=== PATIENT | female | born 1995 | race Caucasian/White ===

== ENCOUNTER 2017-07-23 23:13 | Outpatient (CLI) | payer OTHER ==
[2017-07-23 23:28] VITALS: BP 119/70
[2017-07-24] MEDS ORDERED: VISTARIL PO ONE (00:01)
== END 2017-07-24 00:45 | disposition home or self-care (01) ==
LOC: TRG 23:13
PROVIDERS: ATTEND Obstetrics & Gynecology
DX: O62.9 Abnormality of forces of labor, unspecified (principal); Z3A.39 39 weeks gestation of pregnancy
CPT/HCPCS: 59025; Q0177

== ENCOUNTER 2017-07-24 11:29 | Inpatient (IN) | payer OTHER ==
[2017-07-24] MEDS ORDERED: NARCAN 0.4 MG/1 ML IV PRN ×2 (15:03→22:13)
[2017-07-24] MEDS ORDERED: ePHEDrine SULFATE IV PRN (15:03)
[2017-07-24] MEDS ORDERED: POLYCILLIN/NS 2 GM/100 ML 2 GM/100 ML BAG IV ONE (15:03)
[2017-07-24] MEDS ORDERED: BRETHINE SUB-Q PRN (15:03)
[2017-07-24] MEDS ORDERED: MINERAL OIL PO PRN (15:03)
[2017-07-24] MEDS ORDERED: PHENERGAN PO PRN (15:03)
[2017-07-24] MEDS ORDERED: ZOFRAN IV PRN (15:03)
[2017-07-24] MEDS ORDERED: BRETHINE IVP PRN (15:03)
--- NOTE | 2017-07-24 15:13 | History and Physical Report ---
History of Present Illness Date of examination: 07/24/17 Date of admission: 07/24/2017 Chief complaint: Contractions History of present illness: 21 yo Fe IRMA 07/24/2017 presents with contractions. Placed on EFM. Nonreactive NST, minimal varibility, with early decels. Sent for BPP 11/19, MATHEUS 7.3 cm Pt received care of [facility]. Records not available on admission. Denies Allergies, History of surgery, Medical problems, or problems with this . Reports GBS positive Past History Past Medical History: no pertinent history Past Surgical History: no surgical history RECEPTION INTERVIEWER History: denies: abnormal PAP smear, chlamydia, gonorrhea, hepatitis B, hepatitis C, herpes, HIV, syphilis, trichomonas Family/Genetic History: none Social history: no significant social history, single, lives with family, full code. denies: smoking, alcohol abuse, prescription drug abuse, IV drug use - Obstetrical History Expected Date of Delivery: 07/24/17 Actual Gestation: 40 Week(s) 0 Day(s) : 2 Para: 0 Hx # Term Pregnancies: 0 Number of Pregnancies: 0 Spontaneous Abortions: 1 Induced : 0 Number of Living Children: 0 Medications and Allergies Allergies Allergy/AdvReac Type Severity Reaction Status Date / Time No Known Allergies Allergy Unverified 07/24/17 00:00 Active Meds: Active Medications Butorphanol Tartrate (Stadol) 1 mg IV Q2H PRN PRN Reason: Pain, Moderate (4-6) Ephedrine Sulfate (Ephedrine Sulfate) 10 mg IV Q2M PRN PRN Reason: Hypotension Ampicillin Sodium (Polycillin/Ns 2 Gm/100 Ml) 2 gm in 100 mls @ 100 mls/hr IV ONCE ONE; Protocol Stop: 07/24/17 16:02 Lactated Ringer's (Lactated Ringers) 1,000 mls @ 125 mls/hr IV DIRECT ANITHA Oxytocin/Sodium Chloride (Pitocin/Ns 20 Unit/1000ml Drip) 20 units in 1,000 mls @ 125 mls/hr IV DIRECT ANITHA Oxytocin/Sodium Chloride (Pitocin/Ns 30 Unit/500ml) 30 units in 500 mls @ 2 mls /hr IV TITR ANITHA; Protocol Mineral Oil (Mineral Oil) 30 ml PO QHS PRN PRN Reason: Constipation Naloxone HCl (Narcan 0.4 Mg/1 Ml) 0.1 mg IV Q2MIN PRN PRN Reason: Res Rate </= 8 or 02 SAT < 92% Ondansetron HCl (Zofran) 4 mg IV Q8H PRN PRN Reason: Nausea And Vomiting Promethazine HCl (Phenergan) 25 mg PO Q6H PRN PRN Reason: Nausea And Vomiting Terbutaline Sulfate (Brethine) 0.25 mg SUB-Q ONCE PRN PRN Reason: Hyperstimulation/Hypertonicity Terbutaline Sulfate (Brethine) 0.25 mg IVP ONCE PRN PRN Reason: Hyperstimulation/Hypertonicity Review of Systems All systems: negative Cardiovascular: no chest pain, no shortness of breath Respiratory: no shortness of breath Breasts: normal Gastrointestinal: no nausea, no vomiting, no diarrhea, no constipation Genitourinary: normal appearance, contractions, no vaginal bleeding, no leakage of fluid, no genital sores Integumentary: no rash, no sores, no lesions - Vital Signs Vital signs: Vital Signs Pulse BP 95 H 104/55 07/24/17 12:09 07/24/17 12:09 Temp Pulse Resp BP Pulse Ox 98.1 F 89 16 104/55 98 07/24/17 12:33 07/24/17 13:50 07/24/17 12:33 07/24/17 12:09 07/24/17 13:50 - Physical Exam Cardiovascular: Regular rate, Normal S1, Normal S2 Lungs: Positive: Clear to auscultation, Normal air movement Abdomen: Positive: normal appearance, soft, other (gravid) Genitourinary (Female): Positive: normal external genitalia, normal perenium Vagina: Positive: normal moisture Uterus: Positive: enlarged (Gravid) Anus/Rectum: Positive: normal perianal skin Extremities: Positive: normal Deep Tendon Reflex Grade: Normal +2 - Obstetrical FHR: auscultation normal, category 1 FHR comments: 150 BL, minimal varibility, reassuring, nonreactive Uterine Contraction Monitor Mode: External Cervical Dilatation: 2 (Per infrastructure technician) Cervical Effacement Percentage: 90 station: -2 Uterine Contraction Pattern: Regular Uterine Tone Measurement Phase: Resting Uterine Contraction Intensity: Moderate Results All other labs normal. Assessment and Plan A: , IRMA 07/24/2017; 40w0d GBS positive Nonreactive, reassuring NST BPP 11/19 MATHEUS 7.3 cm P: Admit to L&D Routine L&D orders Pitocin Augmentation GBS prophylaxis
--- NOTE | 2017-07-24 15:49 | Ultrasound Report ---
BIOPHYSICAL PROFILE: INDICATION: well being, decelerations. COMPARISON: None similar. TECHNIQUE: Transabdominal ultrasound with Doppler interrogation. 2 - breathing movements 2 - movements 2 - posture and tone 2 - Qualitative amniotic fluid volume 8 - TOTAL SCORE OF POSSIBLE 8 Heart Rate (bpm) 156 CONCLUSION: Findings, as above.
[2017-07-24] MEDS ORDERED: PITOCin/NS 20 UNIT/1000ML DRIP 20 UNITS/1,000 ML BAG IV SCH (16:00)
[2017-07-24] MEDS ORDERED: PITOCin/NS 30 UNIT/500ML 30 UNITS/500 ML BAG IV SCH (16:00)
[2017-07-24 16:29] LABS: Hematocrit 31.6 % (30.3-42.9); Hemoglobin 10.1 gm/dl (10.1-14.3); Mean Corpuscular HGB Conc 32 % (30-34); Mean Corpuscular Hemoglobin 23 pg (28-32); Mean Corpuscular Volume 72 fl (79-97); Platelet Count 266 K/mm3 (140-440); Red Blood Count 4.42 M/mm3 (3.65-5.03); Red Cell Distribution Width 17.7 % (13.2-15.2)
[2017-07-24] MEDS: LACTATED RINGERS 1,000 ML IV SCH ×3 (17:33→22:27)
[2017-07-24] MEDS: STADOL IV PRN ×2 (17:37→19:32)
[2017-07-24] MEDS ORDERED: AMPICILLIN/NS 1 GM/50 ML 1 GM/50 ML BAG IV SCH (18:00)
[2017-07-24] MEDS ORDERED: SODIUM CHLORIDE FLUSH SYRINGE 10 ML IV PRN (22:13)
[2017-07-24] MEDS ORDERED: XYLOCAINE MPF 2% ONE (22:21)
--- NOTE | 2017-07-24 22:39 | Anesthesia Consultation ---
Anesthesia Consult and Med Hx Date of service: 07/24/17 - Airway Anesthetic Teeth Evaluation: Good ROM Head & Neck: Adequate Mental/Hyoid Distance: Adequate Mallampati Class: Class I Intubation Access Assessment: Good - Pulmonary Exam CTA: Yes - Pre-Operative Health Status ASA Pre-Surgery Classification: ASA1 Proposed Anesthetic Plan: Epidural - Pulmonary Hx Asthma: No - Cardiovascular System Hx Hypertension: No - Central Nervous System Hx Seizures: No Hx Psychiatric Problems: No - Endocrine Hx Renal Disease: No Hx Hypothyroidism: No Hx Hyperthyroidism: No - Hematic Hx Anemia: No Hx Sickle Cell Disease: No - Other Systems Hx Alcohol Use: Yes (occasional)
[2017-07-24] MEDS ORDERED: fentaNYL-BUPIV 2 MCG/ML-0.125% 200 MCG/100 ML BAG EPIDURAL ONE (23:00)
[2017-07-25] MEDS ORDERED: ZOFRAN IV PRN (01:14)
[2017-07-25] MEDS ORDERED: TUCKS PAD TP PRN (01:14)
[2017-07-25] MEDS ORDERED: PHENERGAN PO PRN (01:14)
[2017-07-25] MEDS ORDERED: BENADRYL PO PRN (01:14)
[2017-07-25] MEDS ORDERED: TYLENOL PO PRN (01:14)
[2017-07-25] MEDS ORDERED: NORCO 5/325 PO PRN (01:14)
[2017-07-25] MEDS ORDERED: PHENERGAN PR PRN (01:14)
[2017-07-25] MEDS ORDERED: LANSINOH TP PRN (01:14)
[2017-07-25] MEDS ORDERED: MILK OF MAGNESIA PO PRN (01:14)
[2017-07-25] MEDS ORDERED: DULCOLAX PR PRN (01:14)
--- NOTE | 2017-07-25 01:14 | Procedure Note ---
OB Delivery Note - Delivery Date of Delivery: 07/25/17 Surgeon: CURTIS KAUR Estimated blood loss: 300cc - Vaginal Delivery presentation: vertex Delivery position: OA Intrapartum events: none Delivery induction: oxytocin Delivery augmentation: rupture of membranes, pitocin Delivery monitor: external FHT, external uterine Route of delivery: Delivery placenta: spontaneous Delivery cord: 3 umbilical vessels Episiotomy: none Delivery laceration: 2nd degree (perineal) Delivery repair: vicryl Anesthesia: epidural Delivery comments: delivered OA and placed on Mom's chest for [id number] bonding and delayed cord clamping. - A at 1 minute: 9 at 5 minutes: 9 Infant Gender: Male (3150gms)
[2017-07-25] MEDS ORDERED: SODIUM CHLORIDE FLUSH SYRINGE 10 ML IV NR (02:00)
[2017-07-25] MEDS ORDERED: PITOCin/NS 20 UNIT/1000ML DRIP 20 UNITS/1,000 ML BAG IV SCH (02:00)
[2017-07-25] MEDS: MOTRIN PO SCH ×3 (06:15→23:53)
--- NOTE | 2017-07-25 07:33 | Ultrasound Report ---
OB LIMITED INDICATION: well being, decelerations. COMPARISON: None similar at this institution. TECHNIQUE: Transabdominal grayscale ultrasound with Doppler interrogation. Gestation: [place] Position: Cephalic Amniotic Fluid: WNL (7-24 cm) MATHEUS = 7.3 cm Heart Rate: 156 BPM CONCLUSION: Findings, as above.
[2017-07-25] MEDS: FEOSOL PO SCH ×2 (10:32→23:54)
[2017-07-25] MEDS: PRENATAL VITAMIN PO SCH (10:32)
[2017-07-25] MEDS: COLACE PO SCH ×2 (10:32→23:54)
[2017-07-25 13:45] LABS: Hematocrit 25.8 % (30.3-42.9); Hemoglobin 8.2 gm/dl (10.1-14.3)
[2017-07-26] MEDS: MOTRIN PO SCH (05:37)
[2017-07-26] MEDS ORDERED: BOOSTRIX IM ONE (06:00)
[2017-07-26] MEDS ORDERED: M-M-R II VACCINE SUB-Q ONE (06:00)
--- NOTE | 2017-07-26 09:31 | Progress Note ---
Assessment and Plan A: PPD#1 s/p Stable P: Routine PP care Discharge home today Subjective - Subjective Date of service: 07/26/17 Principal diagnosis: PPD#1 s/p Interval history: 21 yo Fe IRMA 07/24/2017 presents with contractions. Placed on EFM. Nonreactive NST, minimal varibility, with early decels. Sent for BPP 11/19, MATHEUS 7.3 cm. IOL with . Patient reports: appetite normal, voiding normally, pain well controlled, flatus , ambulating normally : doing well, other (both breast/bottle) Objective - Vital Signs Latest vital signs: Vital Signs Temp Pulse Resp BP Pulse Ox 07/26/17 05:37 18 07/26/17 00:20 98.6 F 68 20 92/45 98 07/25/17 23:53 18 07/25/17 16:33 99.0 F 89 18 102/64 99 07/25/17 13:07 99.9 F H 77 18 103/54 98 Intake and Output 07/25/17 07/26/17 07/26/17 23:59 07:59 15:59 Intake Total 1200 720 Output Total 4 Balance 1196 720 Intake: Oral 360 240 Intake, Free Water 840 480 Output: Urine 4 Void 4 Other: Total, Intake Amount 360 240 Total, Output Amount 4 # Voids Void 2 - Exam Breasts: Present: normal Cardiovascular: Present: Regular rate, Normal S1, Normal S2 Lungs: Present: Clear to auscultation, Normal air movement Abdomen: Present: normal appearance, soft, normal bowel sounds Vulva: both: normal Uterus: Present: firm, fundal height below umbilicus (1) Extremities: Present: normal Deep Tendon Reflex Grade: Normal +2 - Labs Labs: Abnormal lab results 07/25/17 Range/Units 13:33 Hgb 8.2 L (10.1-14.3) gm/dl Hct 25.8 L (30.3-42.9) %
--- NOTE | 2017-07-26 09:34 | Discharge Summary ---
Providers - Providers Date of Admission: 07/24/17 11:30 Date of discharge: 07/26/17 Attending physician: MELISSA MONTANA MD Primary care physician: MELISSA MONTANA MD Hospitalization Reason for admission: active labor, IUP at term, other (Pitocin Augmentation ) Delivery: Procedure details: See H&P and delivery note Episiotomy: none Laceration: 2nd degree (well approximated) Other procedures: none complications: none Discharge diagnosis: IUP at term delivered baby: male Condition at discharge: Good Disposition: DC-01 TO HOME OR SELFCARE Plan - Provider Discharge Summary Activity: no sex for 6 weeks, no heavy lifting 4 weeks, no strenuous exercise Diet: routine Instructions: routine Additional instructions: [] Smoking cessation referral if applicable(refer to patient education folder for contact #) [] Refer to [facility]'s [facility] Booklet Call your doctor immediately for: * Fever > 100.5 * Heavy vaginal bleeding ( >1 pad per hour) * Severe persistent headache * Shortness of breath * Reddened, hot, painful area to leg or breast * Drainage or odor from incision. * Keep incision clean and dry at all times and follow doctor's instructions regarding bathing/showering - Follow up plan Follow up: MELISSA MONTANA MD [Primary Care Provider] - 6 Weeks
[2017-07-26] MEDS: PRENATAL VITAMIN PO SCH (11:15)
[2017-07-26] MEDS: FEOSOL PO SCH (11:15)
[2017-07-26 19:20] VITALS: BP 112/58
== END 2017-07-26 18:05 | disposition home or self-care (01) | DRG 775 ==
LOC: TRG 11:29 → LD 11:30 → OB 07-25 02:56
PROVIDERS: ADMIT Obstetrics & Gynecology; ATTEND Obstetrics & Gynecology
PROC: 10E0XZZ Delivery of Products of Conception, External Approach (ICD-10-PCS; principal; 2017-07-25)
PROC: 0KQM0ZZ Repair Perineum Muscle, Open Approach (ICD-10-PCS; 2017-07-25)
PROC: 3E033VJ Introduction of Other Hormone into Peripheral Vein, Percutaneous Approach (ICD-10-PCS; 2017-07-25)
PROC: 3E0R3BZ Introduction of Anesthetic Agent into Spinal Canal, Percutaneous Approach (ICD-10-PCS; 2017-07-25)
PROC: 00HU33Z Insertion of Infusion Device into Spinal Canal, Percutaneous Approach (ICD-10-PCS; 2017-07-25)
DX: O99.824 Streptococcus B carrier state complicating childbirth (principal); O70.1 Second degree perineal laceration during delivery; Z3A.40 40 weeks gestation of pregnancy; Z37.0 Single live birth
CPT/HCPCS: 36415; 76815; 76819; 85014; 85018; 85027; 86592; 86850; 86900; 86901; 99211; G0463; J0290; J0595; J2590; J7120